=== PATIENT | male | born 1940 | race Caucasian/White ===

== ENCOUNTER 2018-01-23 12:48 | Emergency (ER) | payer MEDICARE, OTHER ==
[2018-01-23 14:17] LABS: ABSOLUTE EOSINOPHILS # (AUTO) 0.1 10^3/uL (0.0-0.6); ABSOLUTE LYMPHOCYTES (AUTO) 1.7 10^3/uL (0.5-4.7); ABSOLUTE MONOCYTES (AUTO) 0.4 10^3/uL (0.1-1.4); ABSOLUTE NEUT (AUTO) 3.2 10^3/uL (1.7-8.2); BASOPHILS % (AUTO) 0.4 % (0-2); HEMATOCRIT 41.1 % (37.9-51.0); HEMOGLOBIN 13.7 g/dL (13.5-17.0); LYMPHOCYTES % (AUTO) 32.3 % (13-45); MEAN CORPUSCULAR HEMOGLOBIN 29.7 pg (27.0-33.4); MEAN CORPUSCULAR HGB CONC 33.3 g/dL (32.0-36.0); MEAN CORPUSCULAR VOLUME 89 fl (80-97); MONOCYTES % (AUTO) 7.6 % (3-13); PLATELET COUNT 114 10^3/uL (150-450); RED BLOOD COUNT 4.61 10^6/uL (4.35-5.55); RED CELL DISTRIBUTION WIDTH 14.4 % (11.5-14.0); SEGMENTED NEUTROPHILS % (AUTO) 58.7 % (42-78); TOTAL CELLS COUNTED % (AUTO) 100 %; WHITE BLOOD COUNT 5.4 10^3/uL (4.0-10.5)
--- NOTE | 2018-01-23 14:18 | RADIOLOGY REPORT (SQ) ---
EXAM DESCRIPTION: CHEST SINGLE VIEW COMPLETED DATE/TIME: 01/23/2018 2:02 pm REASON FOR STUDY: low blood pressure COMPARISON: 08/04/2016. EXAM PARAMETERS: NUMBER OF VIEWS: One view. TECHNIQUE: Single frontal radiographic view of the chest acquired. RADIATION DOSE: NA LIMITATIONS: None. FINDINGS: LUNGS AND PLEURA: No opacities, masses or pneumothorax. No pleural effusion. MEDIASTINUM AND HILAR STRUCTURES: No masses. Contour normal. HEART AND VASCULAR STRUCTURES: Heart normal in size. Normal vasculature. BONES: No acute findings. HARDWARE: None in the chest. OTHER: No other significant finding. IMPRESSION: NO ACUTE RADIOGRAPHIC FINDING IN THE CHEST. TECHNICAL DOCUMENTATION: JOB ID: [id number] [employer]- All Rights Reserved Reading location - IP/workstation name: [email or web address]
[2018-01-23 14:26] LABS: ALANINE AMINOTRANSFERASE 19 U/L (21-72); ALBUMIN 3.5 g/dL (3.5-5.0); ALKALINE PHOSPHATASE 110 U/L (38-126); ANION GAP 10 (5-19); ASPARTATE AMINO TRANSFERASE 27 U/L (17-59); BILIRUBIN,DIRECT 0.5 mg/dL (0.0-0.4); BILIRUBIN,TOTAL 0.9 mg/dL (0.2-1.3); BLOOD UREA NITROGEN 29 mg/dL (7-20); CALCIUM 9.4 mg/dL (8.4-10.2); CARBON DIOXIDE 28 mmol/L (22-30); CHLORIDE 106 mmol/L (98-107); CREATINE KINASE 37 U/L (55-170); GLUCOSE 82 mg/dL (75-110); POTASSIUM 4.5 mmol/L (3.6-5.0)
[2018-01-23 14:47] LABS: CREATINE KINASE MB 2.17 ng/mL (<4.55)
[2018-01-23 14:49] LABS: TROPONIN I < 0.012 ng/mL
--- NOTE | 2018-01-23 14:58 | ER Document Report ---
ED General - General Chief Complaint: Blood Pressure Problem Stated Complaint: SICK Time Seen by Provider: 01/23/18 14:18 Mode of Arrival: Medic Information source: Patient, Relative, Dr. 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 IN LAST 30 DAYS: No - HPI Onset: Just prior to arrival Onset/Duration: Sudden Quality of pain: No pain Severity: None Pain Level: Denies Associated symptoms: Other Exacerbated by: Denies Relieved by: Denies Similar symptoms previously: Yes Recently seen / treated by doctor: Yes - Related Data Allergies/Adverse Reactions: No Known Allergies Allergy (Verified 01/23/18 13:37) Past Medical History - Social History Smoking Status: Never Smoker Cigarette use (# per day): No Chew tobacco use (# tins/day): No Smoking Education Provided: No Family History: CAD, DM, Hypertension, Other - Patient has a younger brother with CHF, one uncle of an [place] at age 44, another uncle who of an [place] at age 64. Patient has suicidal ideation: No Patient has homicidal ideation: No - Past Medical History Cardiac Medical History: Reports: Hx Atrial Fibrillation, Hx Hypercholesterolemia, Hx Hypertension Neurological Medical History: Reports: Hx Cerebrovascular Accident. Denies: Hx Seizures Renal/ Medical History: Denies: Hx Peritoneal Dialysis GI Medical History: Reports: Hx Gastroesophageal Reflux Disease Psychiatric Medical History: Denies: Hx Depression - Immunizations Hx Diphtheria, Pertussis, Tetanus Vaccination: Yes Hx Pneumococcal Vaccination: 05/22/13 Review of Systems - Review of Systems Notes: REVIEW OF SYSTEMS: CONSTITUTIONAL : Denies fever, chills, or sweats. Denies recent illness. Low blood pressure EENT: Denies eye, ear, throat, or mouth pain or symptoms. Denies nasal or sinus congestion or discharge. Denies throat, tongue, or mouth swelling or difficulty swallowing. CARDIOVASCULAR: Denies chest pain. Denies palpitations or racing or irregular heart beat. Denies ankle edema. RESPIRATORY: Denies cough, cold, or chest congestion. Denies shortness of breath, difficulty breathing, or wheezing. GASTROINTESTINAL: Denies abdominal pain or distention. Denies nausea, vomiting , or diarrhea. Denies blood in vomitus, stools, or per rectum. Denies black, tarry stools. Denies constipation. GENITOURINARY: Denies difficulty urinating, painful urination, burning, frequency, blood in urine, or discharge. MUSCULOSKELETAL: Denies back or neck pain or stiffness. Denies joint pain or swelling. SKIN: Denies rash, lesions or sores. HEMATOLOGIC : Denies easy bruising or bleeding. LYMPHATIC: Denies swollen, enlarged glands. NEUROLOGICAL: Denies confusion or altered mental status. Denies passing out or loss of consciousness. Denies dizziness or lightheadedness. Denies headache. Denies weakness or paralysis or loss of use of either side. Denies problems with gait or speech. Denies sensory loss, numbness, or tingling. Denies seizures. PSYCHIATRIC: Denies anxiety or stress. Denies depression, suicidal ideation, or homicidal ideation. ALL OTHER SYSTEMS REVIEWED AND NEGATIVE. Dictation was performed using [employer] voice recognition software PHYSICAL EXAMINATION: GENERAL: Well-appearing, well-nourished and in no acute distress. HEAD: Left forehead mass EYES: Pupils equal round and reactive to light, extraocular movements intact, sclera anicteric, conjunctiva are normal. ENT: Nares patent, oropharynx clear without exudates. Moist mucous membranes. NECK: Normal range of motion, supple without lymphadenopathy LUNGS: Breath sounds clear to auscultation bilaterally and equal. No wheezes rales or rhonchi. HEART: Regular rate and rhythm without murmurs ABDOMEN: Soft, nontender, nondistended abdomen. No guarding, no rebound. No masses appreciated. Musculoskeletal: Normal range of motion, no pitting or edema. No cyanosis. NEUROLOGICAL: Cranial nerves grossly intact. Normal speech, normal gait. Normal sensory, motor exams PSYCH: Normal mood, normal affect. SKIN: Mass noted with small amount of drainage Physical Exam - Vital signs Vitals: Temp Pulse Resp BP Pulse Ox 98.3 F 51 L 18 132/60 H 100 01/23/18 13:00 01/23/18 13:00 01/23/18 13:00 01/23/18 13:00 01/23/18 13:00 Course - Re-evaluation Re-evalutation: 01/23/18 14:57 Patient's evaluation notes no hypertension he has no complaints urinalysis is pending to find the source of possible infection, there is small amount of drainage from the left cancerous mass but there is no cellulitic component is no white count elevation the patient does not appear septic 01/23/18 16:39 Patient's blood pressure is otherwise stable, he is watched in the emergency department for approximately 4-1/2 hours has had no complaints Patient will be placed on antibiotics After performing a Medical Screening Examination, I estimate there is LOW risk for INTRACRANIAL HEMORRHAGE, ISCHEMIC CVA, MALIGNANT DYSRHYTHMIA, ACUTE CORONARY SYNDROME, MENINGITIS, PULMONARY EMBOLISM, or SEPSIS thus I consider the discharge disposition reasonable. I have reevaluated this patient multiple times and no significant life threatening changes are noted. The patient and I have discussed the diagnosis and risks, and we agree with discharging home with close follow-up with the understanding that symptoms and presentations can change. We also discussed returning to the Emergency Department immediately if new or worsening symptoms occur. We have discussed the symptoms which are most concerning (e.g., changing or worsening pain, weakness, vomiting, fever) that necessitate immediate return. - Vital Signs Vital signs: Temp Pulse Resp BP Pulse Ox 97.8 F 51 L 14 126/77 H 98 01/23/18 13:02 01/23/18 13:00 01/23/18 16:00 01/23/18 16:00 01/23/18 16:00 - Laboratory Result Diagrams: 01/23/18 13:25 01/23/18 13:25 Laboratory results interpreted by me: 01/23/18 01/23/18 01/23/18 13:25 13:25 16:00 RDW 14.4 H Plt Count 114 L BUN 29 H Creatinine 1.35 H Est GFR (Non-Af Amer) 51 L Direct Bilirubin 0.5 H ALT 19 L Creatine Kinase 37 L Urine Ketones TRACE H Ur Leukocyte Esterase TRACE H Discharge - Discharge Clinical Impression: Infected wound Hypotension Qualifiers: Hypotension type: unspecified hypotension type Qualified Code(s): I95.9 - Hypotension, unspecified Condition: Stable Disposition: HOME, SELF-CARE Instructions: Hypotension ([facility]) Additional Instructions: Please hold blood pressure medication if blood pressure is less that 120/80 Prescriptions: Clindamycin HCl 300 mg PO Q6 #40 capsule Referrals: MARY ALICE RUTLEDGE MD [Primary Care Provider] - Follow up as needed
[2018-01-23 16:22] LABS: APPEARANCE,URINE CLEAR; BILIRUBIN,URINE NEGATIVE (NEGATIVE); COLOR,URINE YELLOW; GLUCOSE, URINE NEGATIVE (NEGATIVE); KETONES,URINE TRACE mg/dL (NEGATIVE); LEUKOCYTE ESTERASE,URINE TRACE (NEGATIVE); NITRITE,URINE NEGATIVE (NEGATIVE); PROTEIN,URINE NEGATIVE (NEGATIVE); URINE SPECIFIC GRAVITY 1.015; UROBILINOGEN,URINE NEGATIVE mg/dL (<2.0)
[2018-01-23 16:45] VITALS: BP 127/70
--- NOTE | 2018-01-23 19:58 | EKG REPORT ---
SEVERITY:- ABNORMAL ECG - ATRIAL FIBRILLATION, V-RATE 56-197 VENTRICULAR PREMATURE COMPLEX NONSPECIFIC IVCD WITH LAD : Confirmed by: Ama Alcazar MD 23-Jan-2018 19:57:46
== END 2018-01-23 17:26 | disposition home or self-care (01) ==
LOC: ER 12:48
DX: I95.9 Hypotension, unspecified (principal); T81.4XXA Infection following a procedure, initial encounter; C44.309 Unspecified malignant neoplasm of skin of other parts of face; I48.91 Unspecified atrial fibrillation; I10 Essential (primary) hypertension
CPT/HCPCS: 36415; 71045; 80053; 81001; 82550; 82553; 84484; 85025; 93005; 93010; 99285

== ENCOUNTER 2018-10-31 14:20 | Inpatient (IN) | payer MEDICARE, OTHER ==
[2018-10-31] MEDS ORDERED: LIDOCAINE 2% URO-JET 5 ML KIT MM ONE (15:32)
--- NOTE | 2018-10-31 15:35 | ER Document Report ---
ED GI/ - General Chief Complaint: Urinary Problem Stated Complaint: URNARY ISSUE Time Seen by Provider: 10/31/18 15:11 Mode of Arrival: Medic Information source: Patient, Relative, Transfer Record Cannot obtain history due to: Other - Parkinson's Notes: Patient presents from a senior care with his at bedside. Patient has been recently diagnosed with a UTI and the was told that he needed to be on a medication that is IV only. states that she cannot afford the medication but was told that if she brought him to the emergency department he could be admitted to get the antibiotic IV here. Patient complains of suprapubic tenderness that has worsened since the initial diagnosis of the UTI 5 days ago. Patient without any back pain or fever. Patient without any vomiting. Patient has not been on any antibiotics thus far. TRAVEL OUTSIDE OF THE [place] IN LAST 30 DAYS: No - HPI Patient complains to provider of: Abdominal pain, Dysuria. No: Testicular pain, Vomiting Onset: Last week Timing/Duration: Worse Quality of pain: Achy, Burning Pain Level: 4 Location: Suprapubic Associated symptoms: denies: Diarrhea, Urinary hesitancy, Urinary frequency, Urinary retention, Urinary urgency, Vomiting Exacerbated by: Denies Relieved by: Denies Similar symptoms previously: Yes Recently seen / treated by doctor: Yes - Related Data Allergies/Adverse Reactions: No Known Allergies Allergy (Verified 01/23/18 13:37) Past Medical History - General Information source: Patient, Relative, Transfer Record - Social History Smoking Status: Former Smoker Frequency of alcohol use: None Drug Abuse: None Lives with: Intermediate Family History: CAD, DM, Hypertension, Other - Patient has a younger brother with CHF, one uncle of an [place] at age 44, another uncle who of an [place] at age 64. Patient has suicidal ideation: No Patient has homicidal ideation: No - Medical History Medical History: Other - Parkinson's - Past Medical History Cardiac Medical History: Reports: Hx Atrial Fibrillation, Hx Hypercholesterolemia, Hx Hypertension Neurological Medical History: Reports: Hx Cerebrovascular Accident. Denies: Hx Seizures Renal/ Medical History: Denies: Hx Peritoneal Dialysis GI Medical History: Reports: Hx Gastroesophageal Reflux Disease Psychiatric Medical History: Denies: Hx Depression Surgical Hx: Negative - Immunizations Hx Diphtheria, Pertussis, Tetanus Vaccination: Yes Hx Pneumococcal Vaccination: 05/22/13 Review of Systems - Review of Systems Constitutional: Recent illness - Recently diagnosed with UTI. denies: Fever EENT: No symptoms reported Cardiovascular: No symptoms reported Respiratory: No symptoms reported. denies: Cough Gastrointestinal: Abdominal pain. denies: Nausea, Vomiting Genitourinary: Dysuria. denies: Flank pain Male Genitourinary: No symptoms reported Musculoskeletal: No symptoms reported Skin: No symptoms reported Hematologic/Lymphatic: No symptoms reported Neurological/Psychological: No symptoms reported Physical Exam - Vital signs Vitals: Temp Pulse Resp BP Pulse Ox 97.8 F 62 18 119/65 99 10/31/18 14:35 10/31/18 14:35 10/31/18 14:35 10/31/18 14:35 10/31/18 14:35 - General General appearance: Alert In distress: None - Respiratory Respiratory status: No respiratory distress Chest status: Nontender Breath sounds: Normal. No: Rales, Rhonchi, Stridor, Wheezing Chest palpation: Normal - Cardiovascular Rhythm: Regular Heart sounds: S1 appreciated, S2 appreciated Murmur: No - Abdominal Inspection: Normal Distension: No distension Bowel sounds: Normal Tenderness: Tender - suprapubic Organomegaly: No organomegaly - Back Back: Normal. No: CVA tenderness - Extremities General upper extremity: Other - Contractures to bilateral upper extremities General lower extremity: Normal inspection - Neurological Aiken Coma Scale Eye Opening: Spontaneous Aiken Coma Scale Verbal: Oriented Chen Coma Scale Motor: Obeys Commands Chen Coma Scale Total: 15 - Skin Skin Temperature: Warm Skin Moisture: Dry Skin Color: Pale Course - Re-evaluation Re-evalutation: 10/31/18 15:32 Called and spoke with staff Dr. Castellanos office who states that Dr. Castellanos does not admit any more and that the hospitalist would be to be called. Dr. Castellanos nurse states that patient is supposed to be treated with ertapenem for his UTI although the could not afford the medication. 10/31/18 17:[address] marlow for admission, will come and evaluate pt. 10/31/18 17:57 Dr Marlow to bedside for exam - Vital Signs Vital signs: Temp Pulse Resp BP Pulse Ox 97.9 F 62 12 91/50 L 97 11/01/18 07:46 11/01/18 07:46 11/01/18 07:46 11/01/18 07:46 11/01/18 07:46 - Laboratory Result Diagrams: 11/01/18 04:18 11/01/18 04:18 Laboratory results interpreted by me: 10/31/18 10/31/18 10/31/18 15:45 15:45 16:20 Plt Count 140 L BUN 25 H Est GFR (Non-Af Amer) 58 L ALT 15 L Urine Protein 100 H Urine Blood SMALL H Urine Nitrite POSITIVE H Ur Leukocyte Esterase LARGE H Labs- Entire Visit 10/31/18 10/31/18 10/31/18 15:45 15:45 16:20 WBC 4.9 RBC 4.44 Hgb 14.0 Hct 40.9 MCV 92 MCH 31.5 MCHC 34.1 RDW 13.9 Plt Count 140 L Seg Neutrophils % 63.2 Lymphocytes % 27.4 Monocytes % 7.4 Eosinophils % 1.8 Basophils % 0.2 Absolute Neutrophils 3.1 Absolute Lymphocytes 1.3 Absolute Monocytes 0.4 Absolute Eosinophils 0.1 Absolute Basophils 0.0 Sodium 139.4 Potassium 4.0 Chloride 103 Carbon Dioxide 30 Anion Gap 6 BUN 25 H Creatinine 1.22 Est GFR ( Amer) > 60 Est GFR (Non-Af Amer) 58 L Glucose 85 Calcium 9.0 Total Bilirubin 0.6 Direct Bilirubin 0.2 Neonat Total Bilirubin Not Reportable Neonat Direct Bilirubin Not Reportable Neonat Indirect Bili Not Reportable AST 23 ALT 15 L Alkaline Phosphatase 96 Total Protein 7.1 Albumin 3.9 Urine Color YELLOW Urine Appearance CLOUDY Urine pH 8.0 Ur Specific [place] 1.011 Urine Protein 100 H Urine Glucose (UA) NEGATIVE Urine Ketones NEGATIVE Urine Blood SMALL H Urine Nitrite POSITIVE H Urine Bilirubin NEGATIVE Urine Urobilinogen NEGATIVE Ur Leukocyte Esterase LARGE H Urine WBC (Auto) >182 Urine RBC (Auto) 16 Urine Bacteria (Auto) 2+ Urine WBC Clumps MANY Squamous Epi Cells Auto <1 Triple Phos Cryst (Auto) MODERATE Urine Mucus (Auto) RARE Urine Ascorbic Acid NEGATIVE Discharge - Discharge Clinical Impression: UTI (urinary tract infection) Qualifiers: Urinary tract infection type: site unspecified Hematuria presence: with hematuria Qualified Code(s): N39.0 - Urinary tract infection, site not specified Condition: Stable Disposition: ADMITTED INPATIENT Admitting Provider: Hospitalist Unit Admitted: Telemetry
[2018-10-31 16:09] LABS: ABSOLUTE EOSINOPHILS # (AUTO) 0.1 10^3/uL (0.0-0.6); ABSOLUTE MONOCYTES (AUTO) 0.4 10^3/uL (0.1-1.4); ABSOLUTE NEUT (AUTO) 3.1 10^3/uL (1.7-8.2); BASOPHILS % (AUTO) 0.2 % (0-2); MEAN CORPUSCULAR VOLUME 92 fl (80-97); TOTAL CELLS COUNTED % (AUTO) 100 %; WHITE BLOOD COUNT 4.9 10^3/uL (4.0-10.5)
[2018-10-31 16:12] LABS: ABSOLUTE LYMPHOCYTES (AUTO) 1.3 10^3/uL (0.5-4.7); EOSINOPHILS % (AUTO) 1.8 % (0-6); HEMATOCRIT 40.9 % (37.9-51.0); LYMPHOCYTES % (AUTO) 27.4 % (13-45); MEAN CORPUSCULAR HEMOGLOBIN 31.5 pg (27.0-33.4); MEAN CORPUSCULAR HGB CONC 34.1 g/dL (32.0-36.0); MONOCYTES % (AUTO) 7.4 % (3-13); PLATELET COUNT 140 10^3/uL (150-450); RED BLOOD COUNT 4.44 10^6/uL (4.35-5.55); RED CELL DISTRIBUTION WIDTH 13.9 % (11.5-14.0); SEGMENTED NEUTROPHILS % (AUTO) 63.2 % (42-78)
[2018-10-31 16:25] LABS: ALANINE AMINOTRANSFERASE 15 U/L (21-72); ALBUMIN 3.9 g/dL (3.5-5.0); ALKALINE PHOSPHATASE 96 U/L (38-126); ANION GAP 6 (5-19); ASPARTATE AMINO TRANSFERASE 23 U/L (17-59); BILIRUBIN,DIRECT 0.2 mg/dL (0.0-0.4); BILIRUBIN,TOTAL 0.6 mg/dL (0.2-1.3); BLOOD UREA NITROGEN 25 mg/dL (7-20); CARBON DIOXIDE 30 mmol/L (22-30); CHLORIDE 103 mmol/L (98-107); GLUCOSE 85 mg/dL (75-110); SODIUM 139.4 mmol/L (137-145); TOTAL PROTEIN 7.1 g/dL (6.3-8.2)
[2018-10-31 17:15] LABS: APPEARANCE,URINE CLOUDY; BILIRUBIN,URINE NEGATIVE (NEGATIVE); COLOR,URINE YELLOW; GLUCOSE, URINE NEGATIVE (NEGATIVE); KETONES,URINE NEGATIVE (NEGATIVE); LEUKOCYTE ESTERASE,URINE LARGE (NEGATIVE); NITRITE,URINE POSITIVE (NEGATIVE); PROTEIN,URINE 100 mg/dL (NEGATIVE); TRIPLE PHOSPHATE CRYSTAL,URINE MODERATE /HPF; URINE SPECIFIC GRAVITY 1.011; UROBILINOGEN,URINE NEGATIVE mg/dL (<2.0)
[2018-10-31] MEDS ORDERED: ERTAPENEM SODIUM INJ 1 GM VIAL IV ONE (17:47)
[2018-10-31] MEDS ORDERED: ONDANSETRON HCL INJ/PF 4 MG/2 ML SDV IV PRN (18:18)
[2018-10-31] MEDS ORDERED: ACETAMINOPHEN 325 MG TABLET PO PRN (18:18)
--- NOTE | 2018-10-31 18:18 | PDOC H&P ---
History of Present Illness Admission Date/PCP: MARY ALICE RUTLEDGE History of Present Illness: JAYNA MORAN is a 78 year old male [facility] resident with past medical history of atrial fibrillation, hyperlipidemia, hypertension, history of prior CVA and Parkinson's disease referred from his primary care physician office of Dr. Rutledge for suprapubic pain and urine culture which was done on October 25 grew multi resistant ESBL E. coli. Since patient has severe Parkinson's and dysarthria is not social history brief history is obtained from the ER attending and his . There is no report of chills, fever or chest pain. No nausea, vomiting or abdominal pain. His urine analysis is positive for nitrate, leukocyte esterase and pyuria. Past Medical History Cardiac Medical History: Reports: Atrial Fibrillation, Hyperlipidema, Hypertension Neurological Medical History: Denies: Seizures GI Medical History: Reports: Gastroesophageal Reflux Disease Psychiatric Medical History: Denies: Depression Social History Smoking Status: Former Smoker Frequency of Alcohol Use: None Hx Recreational Drug Use: No Hx Prescription Drug Abuse: No - Advance Directive Resuscitation Status: Full Code Family History Family History: CAD, DM, Hypertension, Other - Patient has a younger brother with CHF, one uncle of an [place] at age 44, another uncle who of an [place] at age 64. Parental Family History Reviewed: Yes Children Family History Reviewed: Yes Sibling(s) Family History Reviewed.: Yes Medication/Allergy Allergies/Adverse Reactions: No Known Allergies Allergy (Verified 01/23/18 13:37) Review of Systems ROS unobtainable: Other - Dysarthria Physical Exam Vital Signs: Temp Pulse Resp BP Pulse Ox 97.8 F 62 18 113/66 99 10/31/18 14:35 10/31/18 14:35 10/31/18 14:35 10/31/18 17:01 10/31/18 17:01 Intake & Output 10/30/18 10/31/18 11/01/18 06:59 06:59 06:59 Weight 77.111 kg General appearance: PRESENT: no acute distress Eye exam: PRESENT: conjunctiva pink Mouth exam: PRESENT: dry mucosa Neck exam: ABSENT: carotid bruit, JVD, lymphadenopathy, thyromegaly Respiratory exam: PRESENT: clear to auscultation [place]. ABSENT: rales, rhonchi, wheezes Cardiovascular exam: PRESENT: RRR. ABSENT: diastolic murmur, rubs, systolic murmur Neurological exam: PRESENT: alert, awake Results Laboratory Results: 10/31/18 15:45 10/31/18 15:45 10/31/18 10/31/18 10/31/18 15:45 15:45 16:20 WBC 4.9 RBC 4.44 Hgb 14.0 Hct 40.9 MCV 92 MCH 31.5 MCHC 34.1 RDW 13.9 Plt Count 140 L Seg Neutrophils % 63.2 Lymphocytes % 27.4 Monocytes % 7.4 Eosinophils % 1.8 Basophils % 0.2 Absolute Neutrophils 3.1 Absolute Lymphocytes 1.3 Absolute Monocytes 0.4 Absolute Eosinophils 0.1 Absolute Basophils 0.0 Sodium 139.4 Potassium 4.0 Chloride 103 Carbon Dioxide 30 Anion Gap 6 BUN 25 H Creatinine 1.22 Est GFR ( Amer) > 60 Est GFR (Non-Af Amer) 58 L Glucose 85 Calcium 9.0 Total Bilirubin 0.6 AST 23 ALT 15 L Alkaline Phosphatase 96 Total Protein 7.1 Albumin 3.9 Urine Color YELLOW Urine Appearance CLOUDY Urine pH 8.0 Ur Specific [place] 1.011 Urine Protein 100 H Urine Glucose (UA) NEGATIVE Urine Ketones NEGATIVE Urine Blood SMALL H Urine Nitrite POSITIVE H Ur Leukocyte Esterase LARGE H Urine WBC (Auto) >182 Urine RBC (Auto) 16 Assessment & Plan - Diagnosis (1) Complicated UTI due to ESBL E. coli Is this a current diagnosis for this admission?: Yes Plan: Since the organism is sensitive ertapenem, I will put him on this antibiotic. (2) Hypertension Qualifiers: Hypertension type: essential hypertension Qualified Code(s): I10 - Essential (primary) hypertension Is this a current diagnosis for this admission?: Yes Plan: Continue home medication (3) Hyperlipidemia Qualifiers: Hyperlipidemia type: unspecified Qualified Code(s): E78.5 - Hyperlipidemia, unspecified Is this a current diagnosis for this admission?: Yes Plan: Continue home medication (4) Chronic atrial fibrillation Is this a current diagnosis for this admission?: Yes Plan: Rate controlled. Continue home medication. (5) Parkinsons disease Is this a current diagnosis for this admission?: Yes Plan: Stable without behavioral disorder. Continue home medication. - Inpatient Certification Medical Necessity: Need Close Monitoring Due to Risk of Patient Decompensation, Need for IV Antibiotics
[2018-10-31] MEDS ORDERED: ENOXAPARIN SODIUM INJ 30 MG/0.3 ML DISP.SYRIN SUBCUT SCH (18:30)
[2018-10-31] MEDS: ENOXAPARIN SODIUM INJ 40 MG/0.4 ML DISP.SYRIN SUBCUT SCH (19:38)
[2018-10-31] MEDS ORDERED: LORAZEPAM INJ 2 MG/1 ML VIAL ONE ×2 (22:09→22:11)
[2018-10-31] MEDS: MELATONIN 5 MG TABLET PO SCH (22:20)
[2018-10-31] MEDS ORDERED: LORAZEPAM INJ 2 MG/1 ML VIAL IV ONE (22:30)
[2018-10-31] MEDS ORDERED: CARBIDOPA/LEVODOPA 25-250 MG TABLET PO ONE (22:30)
[2018-10-31] MEDS ORDERED: METOPROLOL TARTRATE PF/INJ 5 MG/5 ML SDV IV ONE ×2 (22:52→23:59)
[2018-11-01] MEDS ORDERED: NORMAL SALINE 1000 ML 1,000 ML IV ONE ×2 (04:30→06:30)
[2018-11-01 05:34] LABS: HEMOGLOBIN 13.1 g/dL (13.5-17.0); MEAN CORPUSCULAR HEMOGLOBIN 31.5 pg (27.0-33.4); MEAN CORPUSCULAR HGB CONC 34.6 g/dL (32.0-36.0); MEAN CORPUSCULAR VOLUME 91 fl (80-97); PLATELET COUNT 135 10^3/uL (150-450); RED BLOOD COUNT 4.17 10^6/uL (4.35-5.55); RED CELL DISTRIBUTION WIDTH 13.5 % (11.5-14.0); WHITE BLOOD COUNT 9.7 10^3/uL (4.0-10.5)
[2018-11-01 05:43] LABS: ANION GAP 9 (5-19); BLOOD UREA NITROGEN 24 mg/dL (7-20); CALCIUM 9.1 mg/dL (8.4-10.2); CARBON DIOXIDE 25 mmol/L (22-30); CHLORIDE 104 mmol/L (98-107); GLUCOSE 96 mg/dL (75-110); POTASSIUM 3.9 mmol/L (3.6-5.0); SODIUM 137.8 mmol/L (137-145)
[2018-11-01 07:40] LABS: ABSOLUTE LYMPHOCYTES# (MANUAL) 0.4 10^3/uL (0.5-4.7); ABSOLUTE MONOCYTES # (MANUAL) 0.5 10^3/uL (0.1-1.4); ABSOLUTE NEUTROPHILS# (MANUAL) 8.7 10^3/uL (1.7-8.2); BAND NEUTROPHILS % (MANUAL) 2 % (3-5); BASOPHILS % (MANUAL) 0 % (0-2); EOSINOPHILS % (MANUAL) 1 % (0-6); LYMPHOCYTES % (MANUAL) 4 % (13-45); MONOCYTES % (MANUAL) 5 % (3-13); SEGMENTED NEUTROPHILS % (MAN) 88 % (42-78); TOTAL CELLS COUNTED 100
[2018-11-01 07:41] LABS: PLATELET COMMENT DECREASED
[2018-11-01 07:44] LABS: HYPOCHROMASIA SLIGHT; STOMATOCYTES 1+
[2018-11-01] MEDS: CITALOPRAM HYDROBROMIDE 20 MG TABLET PO SCH (10:55)
[2018-11-01] MEDS: BACLOFEN 10 MG TABLET PO SCH ×2 (10:55→18:52)
[2018-11-01] MEDS: LORAZEPAM 0.5 MG TABLET PO SCH ×2 (10:55→18:53)
[2018-11-01] MEDS: ENOXAPARIN SODIUM INJ 40 MG/0.4 ML DISP.SYRIN SUBCUT SCH (10:55)
[2018-11-01] MEDS: CARBIDOPA/LEVODOPA 25-250 MG TABLET PO SCH ×3 (10:57→18:52)
[2018-11-01] MEDS: METOPROLOL SUCCINATE 25 MG TAB.SR.24H PO SCH (11:02)
--- NOTE | 2018-11-01 15:26 | PDOC PROGRESS REPORT ---
Subjective Progress Note for:: 11/01/18 Subjective:: No adverse events overnight. His blood pressures have been low but stable, and his oral intake has not been very good. He only drank about 100 mL's this morning and just had a few bites, may be 25% of his breakfast. Reason For Visit: COMPLICATED UTI Physical Exam Vital Signs: Temp Pulse Resp BP Pulse Ox 97.6 F 58 L 12 100/43 L 98 11/01/18 12:20 11/01/18 12:03 11/01/18 12:03 11/01/18 12:03 11/01/18 12:03 Intake & Output 10/31/18 11/01/18 11/02/18 06:59 06:59 06:59 Intake Total 2100 Balance 2100 Weight 59.8 kg General appearance: PRESENT: no acute distress, disheveled Respiratory exam: PRESENT: clear to auscultation [place], symmetrical, unlabored. ABSENT: accessory muscle use, crackles, prolonged expiratory phas, rhonchi, tachypnea, wheezes Cardiovascular exam: PRESENT: irregular rhythm Pulses: PRESENT: normal carotid pulses Vascular exam: PRESENT: normal capillary refill GI/Abdominal exam: PRESENT: normal bowel sounds, soft. ABSENT: distended, guarding, rebound, tenderness Extremities exam: ABSENT: clubbing, pedal edema Musculoskeletal exam: PRESENT: normal inspection. ABSENT: deformity Neurological exam: PRESENT: oriented to person - Responds to name, other - Demented. ABSENT: oriented to place Skin exam: PRESENT: dry, warm Results Laboratory Results: 11/01/18 04:18 11/01/18 04:18 10/31/18 10/31/18 10/31/18 15:45 15:45 16:20 WBC 4.9 RBC 4.44 Hgb 14.0 Hct 40.9 MCV 92 MCH 31.5 MCHC 34.1 RDW 13.9 Plt Count 140 L Seg Neutrophils % 63.2 Lymphocytes % 27.4 Monocytes % 7.4 Eosinophils % 1.8 Basophils % 0.2 Absolute Neutrophils 3.1 Absolute Lymphocytes 1.3 Absolute Monocytes 0.4 Absolute Eosinophils 0.1 Absolute Basophils 0.0 Sodium 139.4 Potassium 4.0 Chloride 103 Carbon Dioxide 30 Anion Gap 6 BUN 25 H Creatinine 1.22 Est GFR ( Amer) > 60 Est GFR (Non-Af Amer) 58 L Glucose 85 Calcium 9.0 Total Bilirubin 0.6 AST 23 ALT 15 L Alkaline Phosphatase 96 Total Protein 7.1 Albumin 3.9 Urine Color YELLOW Urine Appearance CLOUDY Urine pH 8.0 Ur Specific [place] 1.011 Urine Protein 100 H Urine Glucose (UA) NEGATIVE Urine Ketones NEGATIVE Urine Blood SMALL H Urine Nitrite POSITIVE H Ur Leukocyte Esterase LARGE H Urine WBC (Auto) >182 Urine RBC (Auto) 16 11/01/18 11/01/18 04:18 04:18 WBC 9.7 RBC 4.17 L Hgb 13.1 L Hct 38.0 MCV 91 MCH 31.5 MCHC 34.6 RDW 13.5 Plt Count 135 L Seg Neutrophils % Not Reportable Lymphocytes % Not Reportable Monocytes % Not Reportable Eosinophils % Not Reportable Basophils % Not Reportable Absolute Neutrophils Not Reportable Absolute Lymphocytes Not Reportable Absolute Monocytes Not Reportable Absolute Eosinophils Not Reportable Absolute Basophils Not Reportable Sodium 137.8 Potassium 3.9 Chloride 104 Carbon Dioxide 25 Anion Gap 9 BUN 24 H Creatinine 1.23 Est GFR ( Amer) > 60 Est GFR (Non-Af Amer) 57 L Glucose 96 Calcium 9.1 Total Bilirubin AST ALT Alkaline Phosphatase Total Protein Albumin Urine Color Urine Appearance Urine pH Ur Specific [place] Urine Protein Urine Glucose (UA) Urine Ketones Urine Blood Urine Nitrite Ur Leukocyte Esterase Urine WBC (Auto) Urine RBC (Auto) Assessment & Plan - Diagnosis (1) Gram-negative bacteremia Is this a current diagnosis for this admission?: Yes Plan: 1 of his blood cultures turn positive. Likely to be the same organism in his urine is currently on ertapenem. (2) Complicated UTI due to ESBL E. coli Is this a current diagnosis for this admission?: Yes Plan: Currently on ertapenem, waiting for confirmatory urine culture here. (3) Chronic atrial fibrillation Is this a current diagnosis for this admission?: Yes Plan: Rate controlled (4) Parkinsons disease Is this a current diagnosis for this admission?: Yes Plan: Is a long-term care patient of [place] and will return there, likely to finish IV antibiotics. - Time Time Spent with patient: 25-34 minutes
[2018-11-01] MEDS: TAMSULOSIN HCL 0.4 MG CAP.SR.24H PO SCH (18:52)
[2018-11-01] MEDS: ERTAPENEM SODIUM 1 GM in NORMAL SALINE 50 ML IV SCH (18:52)
[2018-11-01] MEDS: MELATONIN 5 MG TABLET PO SCH (22:39)
[2018-11-02] MEDS: NORMAL SALINE 1000 ML 1,000 ML IV PRN ×3 (02:28→22:08)
[2018-11-02] MEDS: ENOXAPARIN SODIUM INJ 40 MG/0.4 ML DISP.SYRIN SUBCUT SCH (10:10)
[2018-11-02] MEDS: LORAZEPAM 0.5 MG TABLET PO SCH ×2 (10:10→18:35)
[2018-11-02] MEDS: CITALOPRAM HYDROBROMIDE 20 MG TABLET PO SCH (10:10)
[2018-11-02] MEDS: BACLOFEN 10 MG TABLET PO SCH ×2 (10:11→18:36)
[2018-11-02] MEDS: METOPROLOL SUCCINATE 25 MG TAB.SR.24H PO SCH (10:11)
[2018-11-02] MEDS: CARBIDOPA/LEVODOPA 25-250 MG TABLET PO SCH ×4 (10:11→19:41)
--- NOTE | 2018-11-02 14:23 | PDOC PROGRESS REPORT ---
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 coli. No acute event overnight. He appears comfortable this morning. No fever or chills. Blood and urine culture are growing gram negative rods. Reason For Visit: COMPLICATED UTI Physical Exam Vital Signs: Temp Pulse Resp BP Pulse Ox 98.1 F 64 16 101/49 L 94 11/02/18 12:00 11/02/18 12:00 11/02/18 12:00 11/02/18 12:00 11/02/18 12:00 Intake & Output 11/01/18 11/02/18 11/03/18 06:59 06:59 06:59 Intake Total 2100 406 1508 Balance 2100 406 1508 Weight 131 lb 13.383 oz 131 lb 13.383 oz General appearance: PRESENT: no acute distress, well-developed, well-nourished Head exam: PRESENT: atraumatic, normocephalic Eye exam: PRESENT: conjunctiva pink, EOMI, PERRLA. ABSENT: scleral icterus Ear exam: PRESENT: normal external ear exam Mouth exam: PRESENT: moist, tongue midline Neck exam: ABSENT: carotid bruit, JVD, lymphadenopathy, thyromegaly Respiratory exam: PRESENT: clear to auscultation [place]. ABSENT: rales, rhonchi, wheezes Cardiovascular exam: PRESENT: RRR. ABSENT: diastolic murmur, rubs, systolic murmur Pulses: PRESENT: normal dorsalis pedis pul GI/Abdominal exam: PRESENT: normal bowel sounds, soft. 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 coli Is this a current diagnosis for this admission?: Yes Plan: Currently on ertapenem. Repeat blood and urine culture are growing gram negative rods. Await final culture results. (2) Gram-negative bacteremia Is this a current diagnosis for this admission?: Yes Plan: As per number 1. (3) Parkinsons disease Is this a current diagnosis for this admission?: Yes Plan: Continue Sinemet. (4) Paroxysmal atrial fibrillation Is this a current diagnosis for this admission?: Yes Plan: Currently in sinus rhythm. Continue metoprolol. He is not on anticoagulation. CHADVASC score of 4. Will check with [facility] personnel why he is not on anticoagulation. Will start him on aspirin at least as he does have history of CVA. - Time Time Spent with patient: 15-24 minutes
[2018-11-02] MEDS: ERTAPENEM SODIUM 1 GM in NORMAL SALINE 50 ML IV SCH (18:36)
[2018-11-02] MEDS: TAMSULOSIN HCL 0.4 MG CAP.SR.24H PO SCH (18:36)
--- NOTE | 2018-11-02 18:51 | EKG REPORT ---
SEVERITY:- ABNORMAL ECG - SINUS RHYTHM ATRIAL PREMATURE COMPLEX RBBB AND LAFB LATERAL INFARCT, OLD : Confirmed by: Nick Doty MD 02-Nov-2018 18:49:33
[2018-11-02] MEDS: MELATONIN 5 MG TABLET PO SCH (22:08)
[2018-11-03] MEDS: NORMAL SALINE 1000 ML 1,000 ML IV PRN ×2 (08:34→17:24)
[2018-11-03] MEDS: CARBIDOPA/LEVODOPA 25-250 MG TABLET PO SCH ×3 (09:10→17:27)
[2018-11-03] MEDS: ASPIRIN 81 MG TABLET, CHEWABLE PO SCH (09:10)
[2018-11-03] MEDS: BACLOFEN 10 MG TABLET PO SCH ×2 (09:10→17:27)
[2018-11-03] MEDS: LORAZEPAM 0.5 MG TABLET PO SCH ×2 (09:11→17:27)
[2018-11-03] MEDS: CITALOPRAM HYDROBROMIDE 20 MG TABLET PO SCH (09:11)
[2018-11-03] MEDS: METOPROLOL SUCCINATE 25 MG TAB.SR.24H PO SCH (09:12)
[2018-11-03] MEDS: ENOXAPARIN SODIUM INJ 40 MG/0.4 ML DISP.SYRIN SUBCUT SCH (09:13)
--- NOTE | 2018-11-03 12:31 | PDOC PROGRESS REPORT ---
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 coli. 11/02: He appears comfortable this morning. No fever or chills. Blood and urine culture are growing gram negative rods. 11/03: No acute event overnight. He denies acute complaint aside from his suprapubic discomfort. Called by Lab that blood culutre is growing another species of gram negative pamela. Urine culture grew Morganella and Proteus. Reason For Visit: COMPLICATED UTI Physical Exam Vital Signs: Temp Pulse Resp BP Pulse Ox 97.2 F 52 L 18 155/84 H 96 11/03/18 11:23 11/03/18 11:23 11/03/18 11:23 11/03/18 11:23 11/03/18 11:23 Intake & Output 11/02/18 11/03/18 11/04/18 06:59 06:59 06:59 Intake Total 406 2796 1000 Balance 406 2796 1000 Weight 131 lb 13.383 oz 131 lb 13.383 oz General appearance: PRESENT: no acute distress, well-developed, well-nourished Head exam: PRESENT: atraumatic, normocephalic Eye exam: PRESENT: conjunctiva pink, EOMI, PERRLA. ABSENT: scleral icterus Ear exam: PRESENT: normal external ear exam Mouth exam: PRESENT: moist, tongue midline Neck exam: ABSENT: carotid bruit, JVD, lymphadenopathy, thyromegaly Respiratory exam: PRESENT: clear to auscultation [place]. ABSENT: rales, rhonchi, wheezes Cardiovascular exam: PRESENT: RRR. ABSENT: diastolic murmur, rubs, systolic murmur Pulses: PRESENT: normal dorsalis pedis pul GI/Abdominal exam: PRESENT: normal bowel sounds, soft. ABSENT: distended, guarding, mass, organolmegaly, rebound, tenderness Rectal exam: PRESENT: deferred Neurological exam: PRESENT: alert, awake, CN II-XII grossly intact. ABSENT: motor sensory deficit Results Laboratory Results: 11/01/18 04:18 11/01/18 04:18 03/12/19 16:20 Catheterized Urine Urine Culture - Final Morganella Morganii Proteus Mirabilis Assessment & Plan - Diagnosis (1) Complicated UTI due to ESBL E. coli Is this a current diagnosis for this admission?: Yes Plan: 11/02: Currently on ertapenem. Repeat blood and urine culture are growing gram negative rods. Await final culture results. 11/03: Called by Lab that blood culutre is growing another species of gram negative pamela. Urine culture grew Morganella and Proteus. Will consult with ID for further antibiotic recommendations. (2) Gram-negative bacteremia Is this a current diagnosis for this admission?: Yes Plan: As per number 1. (3) Parkinsons disease Is this a current diagnosis for this admission?: Yes Plan: Continue Sinemet. (4) Paroxysmal atrial fibrillation Is this a current diagnosis for this admission?: Yes Plan: Currently in sinus rhythm. Continue metoprolol. He is not on anticoagulation. CHADVASC score of 4. Will check with skilled nursing personnel why he is not on anticoagulation. Will start him on aspirin at least as he does have history of CVA. - Time Time Spent with patient: 25-34 minutes
--- NOTE | 2018-11-03 15:50 | Progress Note ---
Provider Note Provider Note: ID Consult Note Asked to review patient's chart by Dr Llanos. Pt not seen or examined. Mr. Hernandez is a 78 year old male [facility] resident with PMH including AF, HTN, HLD, prior CVA, and Parkinson's disease who presented on 10/31/18 after having recently being given the diagnosis of a UTI and being told that he needs IV ertapenem. Pt complained of suprapubic tenderness x 5 days, no back pain or fever or vomiting. Pt had a urine culture performed on 10/25/18 that grew an ESBL E coli. However, urine culture collected on presentation to the ED on 10/31/18 grew >100k cfu of Morganella morganii and >100k cfu of Proteus mirabilis. Both isolates are resistant to Bactrim and fluoroquinolones. They are both reported susceptible to Rocephin, cefepime, ertapenem, meropenem, Zosyn, among others. In blood cultures drawn on admission one set grew two different gram negative rods, which have yet to be identified. Empirically pt was given ertapenem. Impression/Recommendations Gram negative bacillary bacteremia secondary to complicated urinary tract infection - Pt has two different isolates of gram negative rods in a set of blood cultures from admission. It is likely that these are the same organisms he had cultured from his urine Proteus mirabilis and Morganella morganii, in conjunction with urinary symptoms. - Can continue ertapenem pending identification of the bloodstream isolates. - If the blood culture isolates are identified as Proteus and Morganella, as anticipated, it would be possible to de-escalate from ertapenem to cefepime 2 g q8h IV. (Although the Morganella is reported as susceptible to Rocephin, some isoaltes can harbor an inducible AmpC gene and - with the seriousness of a bloodstream infection - it might be imprudent to attempt giving a 3rd generation cephalosporin here. Even if there is an AmpC, cefepime is stable.) - There is no good oral switch option unfortunately based on the susceptibility profile of the patient's isolates, but if he is a [facility] resident, he may be able to continue IV cefepime there. - Suggest 10 days as total duration of therapy. Today is day 3. Basil Drew MD [facility] pager [phone]
[2018-11-03] MEDS: ERTAPENEM SODIUM 1 GM in NORMAL SALINE 50 ML IV SCH (17:24)
[2018-11-03] MEDS: TAMSULOSIN HCL 0.4 MG CAP.SR.24H PO SCH (17:27)
[2018-11-03] MEDS: MELATONIN 5 MG TABLET PO SCH (21:16)
[2018-11-04] MEDS: NORMAL SALINE 1000 ML 1,000 ML IV PRN ×2 (05:56→15:09)
[2018-11-04] MEDS: CARBIDOPA/LEVODOPA 25-250 MG TABLET PO SCH ×3 (09:04→17:34)
[2018-11-04] MEDS: METOPROLOL SUCCINATE 25 MG TAB.SR.24H PO SCH (09:04)
[2018-11-04] MEDS: CITALOPRAM HYDROBROMIDE 20 MG TABLET PO SCH (09:04)
[2018-11-04] MEDS: LORAZEPAM 0.5 MG TABLET PO SCH ×2 (09:04→17:34)
[2018-11-04] MEDS: ENOXAPARIN SODIUM INJ 40 MG/0.4 ML DISP.SYRIN SUBCUT SCH (09:05)
[2018-11-04] MEDS: BACLOFEN 10 MG TABLET PO SCH ×2 (09:05→17:34)
[2018-11-04] MEDS: ASPIRIN 81 MG TABLET, CHEWABLE PO SCH (09:05)
--- NOTE | 2018-11-04 13:57 | PDOC PROGRESS REPORT ---
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 coli. 11/02: He appears comfortable this morning. No fever or chills. Blood and urine culture are growing gram negative rods. 11/03: He denies acute complaint aside from his suprapubic discomfort. Called by Lab that blood culture is growing another species of gram negative pamela. Urine culture grew Morganella and Proteus. 11/04: No acute event overnight. He denies abdominal pain this morning. Appreciate ID input and recommendations. Blood culture grew Proteus and is still growing another gram negative bacilli species. Plan for PICC line placement and 10 days of IV antibiotics pending final culture reports. Reason For Visit: COMPLICATED UTI Physical Exam Vital Signs: Temp Pulse Resp BP Pulse Ox 97.6 F 59 L 16 119/58 L 100 11/04/18 12:00 11/04/18 12:00 11/04/18 12:00 11/04/18 12:00 11/04/18 12:00 Intake & Output 11/03/18 11/04/18 11/05/18 06:59 06:59 06:59 Intake Total 2796 3562 118 Balance 2796 3562 118 Weight 131 lb 13.383 oz 123 lb 7.342 oz General appearance: PRESENT: no acute distress, well-developed, well-nourished Head exam: PRESENT: atraumatic, normocephalic Eye exam: PRESENT: conjunctiva pink, EOMI, PERRLA. ABSENT: scleral icterus Ear exam: PRESENT: normal external ear exam Mouth exam: PRESENT: moist, tongue midline Neck exam: ABSENT: carotid bruit, JVD, lymphadenopathy, thyromegaly Respiratory exam: PRESENT: clear to auscultation [place]. ABSENT: rales, rhonchi, wheezes Cardiovascular exam: PRESENT: RRR. ABSENT: diastolic murmur, rubs, systolic murmur Pulses: PRESENT: normal dorsalis pedis pul GI/Abdominal exam: PRESENT: normal bowel sounds, soft. ABSENT: distended, guarding, mass, organolmegaly, rebound, tenderness Rectal exam: PRESENT: deferred Neurological exam: PRESENT: alert, awake, oriented to person, CN II-XII grossly intact. ABSENT: oriented to place, oriented to time, oriented to situation, motor sensory deficit Results Laboratory Results: 11/01/18 04:18 11/01/18 04:18 Assessment & Plan - Diagnosis (1) Complicated UTI due to ESBL E. coli Is this a current diagnosis for this admission?: Yes Plan: 11/02: Currently on ertapenem. Repeat blood and urine culture are growing gram negative rods. Await final culture results. 11/03: Called by Lab that blood culutre is growing another species of gram negative pamela. Urine culture grew Morganella and Proteus. Will consult with ID for further antibiotic recommendations. 11/04: No acute event overnight. He denies abdominal pain this morning. Appreciate ID input and recommendations. Blood culture grew Proteus and is still growing another gram negative bacilli species. Plan for PICC line placement and 10 days of IV antibiotics pending final culture reports. (2) Gram-negative bacteremia Is this a current diagnosis for this admission?: Yes Plan: As per number 1. (3) Parkinsons disease Is this a current diagnosis for this admission?: Yes Plan: Continue Sinemet. (4) Paroxysmal atrial fibrillation Is this a current diagnosis for this admission?: Yes Plan: Currently in sinus rhythm. Continue metoprolol. He is not on anticoagulation. CHADVASC score of 4. [facility] unsure why he is not on anticoagulation, possibly from fall risks as he has Parkinson's. Will start him on aspirin at least as he does have history of CVA. Recommend follow up with PCP and reassessment of need for anticoagulation. - Time Time Spent with patient: 25-34 minutes
[2018-11-04] MEDS: ERTAPENEM SODIUM 1 GM in NORMAL SALINE 50 ML IV SCH (17:34)
[2018-11-04] MEDS: TAMSULOSIN HCL 0.4 MG CAP.SR.24H PO SCH (17:34)
[2018-11-04] MEDS: MELATONIN 5 MG TABLET PO SCH (21:03)
[2018-11-05] MEDS ORDERED: METOPROLOL TARTRATE PF/INJ 5 MG/5 ML SDV IV ONE ×2 (02:27→02:30)
[2018-11-05] MEDS: NORMAL SALINE 1000 ML 1,000 ML IV PRN ×2 (02:33→21:49)
[2018-11-05] MEDS ORDERED: DILTIAZEM HCL INJ 25 MG/5 ML VIAL ONE (02:53)
[2018-11-05] MEDS ORDERED: DILTIAZEM HCL INJ 25 MG/5 ML VIAL IV ONE (03:00)
[2018-11-05] MEDS: CITALOPRAM HYDROBROMIDE 20 MG TABLET PO SCH (10:12)
[2018-11-05] MEDS: ENOXAPARIN SODIUM INJ 40 MG/0.4 ML DISP.SYRIN SUBCUT SCH (10:12)
[2018-11-05] MEDS: CARBIDOPA/LEVODOPA 25-250 MG TABLET PO SCH ×3 (10:12→18:26)
[2018-11-05] MEDS: METOPROLOL SUCCINATE 25 MG TAB.SR.24H PO SCH (10:12)
[2018-11-05] MEDS: ASPIRIN 81 MG TABLET, CHEWABLE PO SCH (10:12)
[2018-11-05] MEDS: BACLOFEN 10 MG TABLET PO SCH ×2 (10:12→18:26)
[2018-11-05] MEDS: LORAZEPAM 0.5 MG TABLET PO SCH ×2 (10:12→18:26)
--- NOTE | 2018-11-05 14:18 | PDOC PROGRESS REPORT ---
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 coli. 11/02: He appears comfortable this morning. No fever or chills. Blood and urine culture are growing gram negative rods. 11/03: He denies acute complaint aside from his suprapubic discomfort. Called by Lab that blood culture is growing another species of gram negative pamela. Urine culture grew Morganella and Proteus. 11/04: He denies abdominal pain this morning. Appreciate ID input and recommendations. Blood culture grew Proteus and is still growing another gram negative bacilli species. Plan for PICC line placement and 10 days of IV antibiotics pending final culture reports. 11/05: Patient went to AF in the 120s briefly last night and was given a dose of IV lopressor and cardizem. Currently in sinus rhythm in the 50-60s. Patient is ready for discharge and is just awaiting PICC line placement for snf IV antibiotics to be completed at the skilled nursing. Patient complained he was not able to sleep well last night that he thought the room looked upside down. Per RN, he does sundowns at night. This morning, he is at baseline and is oriented to person, his family and place. Reason For Visit: COMPLICATED UTI Physical Exam Vital Signs: Temp Pulse Resp BP Pulse Ox 97.6 F 65 20 138/69 H 100 11/05/18 10:46 11/05/18 10:46 11/05/18 10:46 11/05/18 10:46 11/05/18 10:46 Intake & Output 11/04/18 11/05/18 11/06/18 06:59 06:59 06:59 Intake Total 3562 2570 467 Balance 3562 2570 467 Weight 123 lb 7.342 oz General appearance: PRESENT: no acute distress, well-developed, well-nourished Head exam: PRESENT: atraumatic, normocephalic Eye exam: PRESENT: conjunctiva pink, EOMI, PERRLA. ABSENT: scleral icterus Ear exam: PRESENT: normal external ear exam Mouth exam: PRESENT: moist, tongue midline Neck exam: ABSENT: carotid bruit, JVD, lymphadenopathy, thyromegaly Respiratory exam: PRESENT: clear to auscultation [place]. ABSENT: rales, rhonchi, wheezes Cardiovascular exam: PRESENT: RRR. ABSENT: diastolic murmur, rubs, systolic murmur Pulses: PRESENT: normal dorsalis pedis pul GI/Abdominal exam: PRESENT: normal bowel sounds, soft. ABSENT: distended, guarding, mass, organolmegaly, rebound, tenderness Rectal exam: PRESENT: deferred Neurological exam: PRESENT: alert, awake, oriented to person, oriented to place, CN II-XII grossly intact. ABSENT: oriented to time, motor sensory deficit Results Laboratory Results: 11/01/18 04:18 11/01/18 04:18 10/31/18 18:36 Blood Blood Culture - Final Proteus Mirabilis Escherichia Coli Esbl Assessment & Plan - Diagnosis (1) Complicated UTI due to ESBL E. coli Is this a current diagnosis for this admission?: Yes Plan: 11/02: Currently on ertapenem. Repeat blood and urine culture are growing gram negative rods. Await final culture results. 11/03: Called by Lab that blood culutre is growing another species of gram negative pamela. Urine culture grew Morganella and Proteus. Will consult with ID for further antibiotic recommendations. 11/04: He denies abdominal pain this morning. Appreciate ID input and recommendations. Blood culture grew Proteus and is still growing another gram negative bacilli species. Plan for PICC line placement and 10 days of IV antibiotics pending final culture reports. 11/05: Blood culture grew ESBL E. coli and Proteus. Urine culture grew Morganella and Proteus. He will need to be on Ertapenem. Still awaiting PICC line placement. He will need a total duration of 10 days of Ertapenem. (2) Gram-negative bacteremia Is this a current diagnosis for this admission?: Yes Plan: As per number 1. (3) Parkinsons disease Is this a current diagnosis for this admission?: Yes Plan: Continue Sinemet. (4) Paroxysmal atrial fibrillation Is this a current diagnosis for this admission?: Yes Plan: Currently in sinus rhythm. Continue metoprolol. He is not on anticoagulation. CHADVASC score of 4. [facility] unsure why he is not on anticoagulation, possibly from fall risks as he has Parkinson's. Will start him on aspirin at least as he does have history of CVA. Recommend follow up with PCP and reassessment of need for anticoagulation. 11/05: Discussed with on bedside. Apparently patient has history of bleeding including prior bloody stools and skin bleeding as he has very fragile skin hence was not put on anticoagulation. She does say he is supposed to be on aspirin. - Time Time Spent with patient: 25-34 minutes
[2018-11-05] MEDS: TAMSULOSIN HCL 0.4 MG CAP.SR.24H PO SCH (18:26)
[2018-11-05] MEDS: ERTAPENEM SODIUM 1 GM in NORMAL SALINE 50 ML IV SCH (18:27)
[2018-11-05] MEDS: MELATONIN 5 MG TABLET PO SCH (21:02)
[2018-11-05] MEDS ORDERED: QUETIAPINE FUMARATE 25 MG TABLET PO SCH (22:00)
[2018-11-06] MEDS ORDERED: NORMAL SALINE 10 ML SDV (AFTER EACH USE) IV PRN (10:00)
[2018-11-06] MEDS ORDERED: NORMAL SALINE 10 ML SDV (SCHEDULED) IV SCH (10:00)
[2018-11-06] MEDS: ASPIRIN 81 MG TABLET, CHEWABLE PO SCH (10:28)
[2018-11-06] MEDS: METOPROLOL SUCCINATE 25 MG TAB.SR.24H PO SCH (10:29)
[2018-11-06] MEDS: CARBIDOPA/LEVODOPA 25-250 MG TABLET PO SCH ×3 (10:29→17:15)
[2018-11-06] MEDS: BACLOFEN 10 MG TABLET PO SCH ×2 (10:29→17:15)
[2018-11-06] MEDS: LORAZEPAM 0.5 MG TABLET PO SCH ×2 (10:29→17:15)
[2018-11-06] MEDS: CITALOPRAM HYDROBROMIDE 20 MG TABLET PO SCH (10:29)
[2018-11-06] MEDS: ENOXAPARIN SODIUM INJ 40 MG/0.4 ML DISP.SYRIN SUBCUT SCH (10:36)
--- NOTE | 2018-11-06 10:56 | RADIOLOGY REPORT (SQ) ---
EXAM DESCRIPTION: PICC INSERTION; U/S GUIDE FOR VASCULAR ACCESS; FLUORO/CV PLACEMENT COMPLETED DATE/TIME: 11/06/2018 9:25 am REASON FOR STUDY: longterm iv antibiotics; IV ABX COMPARISON: None. FLUOROSCOPY TIME: 1 minutes 15 seconds 2 images saved to PACS. TECHNIQUE: Fluoroscopic and ultrasound guided PICC placement. LIMITATIONS: None. PROCEDURE: After written consent and assessment were obtained, the patient was brought into the fluo roscopy room and placed supine on the table. Ultrasound evaluation of potential access sites were per formed. After successfully identifying a patent left basilic vein, the left arm was prepped and drape d in a sterile fashion along with the ultrasound probe. The entry site was anesthetized with 1% lidoc ronal. A 21 gauge 7 cm needle was advanced through the skin and into the basilic vein under live ultra sound guidance. An ultrasound image was saved to PACS confirming access site. A .018 guide wire was then inserted through the needle and into the venous system. The needle was then removed and an 11 b lade scalpel was used to make a 1cm skin incision. A 5 fr peel-away sheath was advanced over the wir e and into the venous system. A measurement was then made using the existing wire and live fluoroscop ic guidance. The wire was then removed and trimmed. The PICC was advanced through the peel-away sheat h and into the venous system. The peel-away sheath was removed and the catheter was adhered to the pa tients arm with a stat lock. The catheter was then aspirated and flushed and a sterile bandage was pl aced over the access site. A fluoroscopic spot image was saved to PACS confirming the catheter tip w ithin the superior vena cava. IMPRESSION: SUCCESSFUL PLACEMENT OF A 5 FR DUAL LUMEN 46 CM PICC IN THE LEFT BASILIC VEIN. COMMENT: Patient medication list reviewed: Yes- Quality ID# [id number]:Eligible professional attests to doc umenting in the medical record they obtained, updated, or reviewed the patient's current medications. . Quality ID 145: Final reports for procedures using fluoroscopy that document radiation exposure randi gabby, or exposure time and number of fluorographic images (if radiation exposure indices are not avail able) Quality ID #76: The patient was prepped and draped using maximum sterile barrier technique including cap, mask, sterile gown, sterile gloves, a large sterile sheet, hand hygiene, and 2% Chlorhexidine fo r cutaneous antisepsis. When ultrasound is used, sterile ultrasound techniques are followed requiring sterile gel and sterile probes. TECHNICAL DOCUMENTATION: JOB ID: [id number] [employer]- All Rights Reserved rev-01/06 Reading location - IP/workstation name: [email or web address]
--- NOTE | 2018-11-06 15:07 | PDOC TRANSFER SUMMARY ---
General - Admit/Disc Date/PCP Admission Date/Primary Care Provider: 10/31/18 18:34 MARY ALICE RUTLEDGE Discharge Date: 11/06/18 - Discharge Diagnosis (1) Complicated UTI due to ESBL E. coli Is this a current diagnosis for this admission?: Yes (2) Gram-negative bacteremia Is this a current diagnosis for this admission?: Yes (3) Parkinsons disease Is this a current diagnosis for this admission?: Yes (4) Paroxysmal atrial fibrillation Is this a current diagnosis for this admission?: Yes - Additional Information Resuscitation Status: Full Code Prescriptions: Aspirin [Aspirin 81 mg Chewable Tablet] 81 mg PO DAILY 30 Days tab.chew Ertapenem Sodium [Invanz Inj 1 gm Vial] 1 gm IV QPM 5 Days #5 vial Quetiapine Fumarate [Seroquel 25 mg Tablet] 25 mg PO QHS #30 tablet Home Medications: Baclofen [Baclofen 10 mg Tablet] 10 mg PO BID 10/31/18 Carbidopa/Levodopa [Sinemet 25-250 mg Tablet] 1 tab PO TID 10/31/18 Cetirizine HCl [Zyrtec 10 mg Tablet] 10 mg PO DAILY 10/31/18 Citalopram Hydrobromide [Celexa 20 mg Tablet] 20 mg PO DAILY 10/31/18 Dutasteride [Avodart Lf 0.5 mg Capsule] 0.5 mg PO DAILY 10/31/18 Furosemide [Lasix 20 mg Tablet] 20 mg PO DAILY 10/31/18 Melatonin [Melatonin 5 mg Tablet] 5 mg PO QHS 10/31/18 Metoprolol Succinate [Toprol Xl 25 mg Tab.sr] 25 mg PO DAILY 10/31/18 Tamsulosin HCl [Flomax 0.4 mg Cap.sr] 0.4 mg PO QPM 10/31/18 Aspirin [Aspirin 81 mg Chewable Tablet] 81 mg PO DAILY 30 Days tab.chew 11/06/18 Ertapenem Sodium [Invanz Inj 1 gm Vial] 1 gm IV QPM 5 Days #5 vial 11/06/18 Lorazepam [Ativan 0.5 mg Tablet] 0.5 mg PO BID PRN #0 11/06/18 Quetiapine Fumarate [Seroquel 25 mg Tablet] 25 mg PO QHS #30 tablet 11/06/18 History of Present Illness Admission Date/PCP: 10/31/18 18:34 MARY ALICE RUTLEDGE Patient complains of: suprapubic pain History of Present Illness: Admitting hospitalist's H&P: JAYNA MORAN is a 78 year old male [facility] resident with past medical history of atrial fibrillation, hyperlipidemia, hypertension, history of prior CVA and Parkinson's disease referred from his primary care phys [facility] office of Dr. Rutledge for suprapubic pain and urine culture which was done on October 25 grew multi resistant ESBL E. coli. Since patient has severe Parkinson's and dysarthria is not social history brief history is obtained from the ER attending and his . There is no report of chills, fever or chest pain. No nausea, vomiting or abdominal pain. His urine analysis is positive for nitrate, leukocyte esterase and pyuria. 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 coli. He was started on Ertapenem here. ID was also consulted. Blood culture grew ESBL E. coli and Proteus. Urine culture grew Morganella and Proteus. PICC line was placed today. He will need to be on Ertapenem for a total of 10 days duration with last dose on 11/10. For his Afib, he has a CHADVASC score of 4. Discussed with on bedside. Apparently patient has history of bleeding including prior bloody stools and skin bleeding as he has very fragile skin hence was not put on anticoagulation. She does say he is supposed to be on aspirin. Physical Exam Vital Signs: Temp Pulse Resp BP Pulse Ox 97.5 F 75 16 126/63 H 96 11/06/18 11:34 11/06/18 14:00 11/06/18 11:34 11/06/18 11:34 11/06/18 11:34 Intake & Output 11/05/18 11/06/18 11/07/18 06:59 06:59 06:59 Intake Total 2570 2263 Balance 2570 2263 Weight 123 lb 7.342 oz 123 lb 7.342 oz General appearance: PRESENT: no acute distress, well-developed, well-nourished Head exam: PRESENT: atraumatic, normocephalic Eye exam: PRESENT: conjunctiva pink, EOMI, PERRLA. ABSENT: scleral icterus Ear exam: PRESENT: normal external ear exam Mouth exam: PRESENT: moist, tongue midline Neck exam: ABSENT: carotid bruit, JVD, lymphadenopathy, thyromegaly Respiratory exam: PRESENT: clear to auscultation [place]. ABSENT: rales, rhonchi, wheezes Cardiovascular exam: PRESENT: RRR. ABSENT: diastolic murmur, rubs, systolic murmur Pulses: PRESENT: normal dorsalis pedis pul GI/Abdominal exam: PRESENT: normal bowel sounds, soft. ABSENT: distended, guarding, mass, organolmegaly, rebound, tenderness Rectal exam: PRESENT: deferred Neurological exam: PRESENT: alert, awake, oriented to person Results Laboratory Results: 11/01/18 04:18 11/01/18 04:18 10/31/18 20:13 Blood Blood Culture - Final NO GROWTH IN 5 DAYS Impressions: PICC Line Insertion 11/04/18 00:00 IMPRESSION: SUCCESSFUL PLACEMENT OF A 5 FR DUAL LUMEN 46 CM PICC IN THE LEFT BASILIC VEIN. Guidance Fluoroscopy 11/06/18 00:00 IMPRESSION: SUCCESSFUL PLACEMENT OF A 5 FR DUAL LUMEN 46 CM PICC IN THE LEFT BASILIC VEIN. Interventional Vascular Procedure 11/06/18 00:00 IMPRESSION: SUCCESSFUL PLACEMENT OF A 5 FR DUAL LUMEN 46 CM PICC IN THE LEFT BASILIC VEIN. Qualifiers - * PATIENT BEING DISCHARGED WITH ANY OF THE FOLLOWING DIAGNOSIS: No
[2018-11-06 15:28] VITALS: BP 138/60
[2018-11-06] MEDS: ERTAPENEM SODIUM 1 GM in NORMAL SALINE 50 ML IV SCH (16:31)
[2018-11-06] MEDS: TAMSULOSIN HCL 0.4 MG CAP.SR.24H PO SCH (17:15)
== END 2018-11-06 17:20 | DRG 690 ==
LOC: ER 14:20 → EH 18:34 → 4W 20:21
PROVIDERS: ADMIT Internal Medicine; ATTEND Internal Medicine
PROC: 02HV33Z Insertion of Infusion Device into Superior Vena Cava, Percutaneous Approach (ICD-10-PCS; principal; 2018-11-06)
PROC: B518ZZA Fluoroscopy of Superior Vena Cava, Guidance (ICD-10-PCS; 2018-11-06)
DX: N39.0 Urinary tract infection, site not specified (principal); R78.81 Bacteremia; I69.354 Hemiplegia and hemiparesis following cerebral infarction affecting left non-dominant side; G20 Parkinson's disease; I48.0 Paroxysmal atrial fibrillation; B96.89 Other specified bacterial agents as the cause of diseases classified elsewhere; B96.20 Unspecified Escherichia coli [E. coli] as the cause of diseases classified elsewhere; E78.5 Hyperlipidemia, unspecified; I10 Essential (primary) hypertension; K21.9 Gastro-esophageal reflux disease without esophagitis; R47.1 Dysarthria and anarthria; Z16.23 Resistance to quinolones and fluoroquinolones; Z87.891 Personal history of nicotine dependence; Z82.49 Family history of ischemic heart disease and other diseases of the circulatory system; Z79.82 Long term (current) use of aspirin
CPT/HCPCS: 36415; 36569; 76937; 77001; 80048; 80053; 81001; 85025; 87040; 87077; 87086; 87088; 87186; 93005; 93010; 99284; C1758; C1769; J1335; J1642; J1650; J2060; J3490; J7030